=== PATIENT | female | born 1995 | race Caucasian/White ===

== ENCOUNTER 2017-06-08 21:18 | Inpatient (IN) | payer OTHER ==
[~2017-06-08] VITALS: Ht 170.2 cm; Wt 118.1 kg
[~2017-06-08 21:18] MED LIST: AMOXICILLIN500 M1 PO; MOTRIN600 MG PO; MOTRIN800 MG PO; MUCINEX D ER T1 EACH PO; PRILOSEC20 MG PO; TORADOL10 MG PO; VALIUM2 MG PO; ZOFRAN ODT4 MG PO; ZOFRAN ODT8 MG PO
[2017-06-08 21:50] VITALS: BP 171/81
[2017-06-08 21:59] VITALS: BP 150/83
[2017-06-08 22:29] VITALS: BP 137/84
[2017-06-08 22:54] LABS: EOSINOPHIL (%) 0.6 % (0-5); EOSINOPHIL COUNT 0.1 K/uL (0-0.3); HEMATOCRIT 35.2 % (36.0-46.0); IMMATURE GRANULOCYTE (%) 0.4 % (0.0-0.7); IMMATURE GRANULOCYTE COUNT 0.1 K/uL; INSTRUMENT ABS NEUTROPHIL CT 9.4 K/uL; LYMPHOCYTE COUNT 2.1 K/uL (1.0-2.8); MCH 26.1 PG (29.0-34.0); MCHC 32.7 G/DL (30.0-36.0); MCV 79.8 FL (83-99); MEAN PLAT.VOLUME 13.5 uM^3 (9.5-12.4); MONOCYTE (%) 5.4 % (3-12); MONOCYTE COUNT 0.7 K/uL (0-0.8); NEUTROPHIL (%) 76.4 % (45-76); NEUTROPHIL COUNT 9.4 K/uL (1.8-6.4); PLATELET COUNT 186 K/uL (156-360); RBC DIS.WIDTH-CV 15.6 % (11.8-14.6); RBC DIS.WIDTH-SD 45.1 % (39-53); RED BLOOD COUNT 4.41 M/uL (3.80-5.20); WHITE BLOOD COUNT 12.3 K/uL (4.1-10.2)
[2017-06-08 22:59] VITALS: BP 161/85
[2017-06-08 23:06] LABS: ANION GAP 8 MEQ/L (2-14); CHLORIDE 108 MEQ/L (99-109); POTASSIUM 4.6 MEQ/L (3.7-5.4); SAMPLE HEMOLYSIS CHECK 0; SAMPLE ICTERIC CHECK 0; SAMPLE LIPEMIA CHECK 0; SODIUM 136 MEQ/L (136-147); TOTAL BILIRUBIN 0.1 MG/DL (0.0-1.0)
[2017-06-08 23:11] LABS: ALKALINE PHOSPHATASE 140 IU/L (3-129); GFR ESTIMATE (CALCULATED) > 59 mL/min/; GLUCOSE 93 mg/dL (70-99); UREA NITROGEN (BUN) 12 mg/dL (9-23); URIC ACID 5.3 mg/dL (3.1-9.2)
[2017-06-08 23:17] VITALS: BP 152/83
[2017-06-08 23:47] VITALS: BP 143/64
[2017-06-09] VITALS (35 sets, daily range): BP systolic 119–192; BP diastolic 60–114
[2017-06-09 00:48] LABS: ADD MIUA? YES; BILIRUBIN NEGATIVE; BLOOD NEGATIVE; COLOR YELLOW ((YELLOW)); GLUCOSE (STRIP) NEGATIVE; KETONES NEGATIVE; LEUKOCYTES TRACE; NITRITE NEGATIVE; PROTEIN (STRIP) 30; SPECIFIC GRAVITY 1.021 (1.000-1.030); UROBILINOGEN 0.2 MG/DL (0.2-1.0)
[2017-06-09 01:00] LABS: BACTERIA RARE /HPF; EPITHELIAL CELLS 1+ /HPF; MUCUS TRACE /LPF; RED BLOOD CELLS 0-5 /HPF (0-5); UCUL ADDED? NO
[2017-06-09] MEDS ORDERED: MOTRIN800 MG PO (14:30)
[2017-06-10 05:48] LABS: EOSINOPHIL (%) 0.4 % (0-5); EOSINOPHIL COUNT 0.1 K/uL (0-0.3); IMMATURE GRANULOCYTE (%) 0.3 % (0.0-0.7); INSTRUMENT ABS NEUTROPHIL CT 8.6 K/uL; LYMPHOCYTE COUNT 1.9 K/uL (1.0-2.8); MCH 25.9 PG (29.0-34.0); MCHC 32.1 G/DL (30.0-36.0); MCV 80.5 FL (83-99); MEAN PLAT.VOLUME 13.4 uM^3 (9.5-12.4); MONOCYTE (%) 5.6 % (3-12); MONOCYTE COUNT 0.6 K/uL (0-0.8); NEUTROPHIL (%) 76.4 % (45-76); NEUTROPHIL COUNT 8.6 K/uL (1.8-6.4); PLATELET COUNT 165 K/uL (156-360); RBC DIS.WIDTH-CV 15.7 % (11.8-14.6); RBC DIS.WIDTH-SD 45.3 % (39-53); WHITE BLOOD COUNT 11.2 K/uL (4.1-10.2)
[2017-06-10 15:27] VITALS: BP 143/80
[2017-06-10 17:01] VITALS: BP 141/71
[2017-06-10 19:36] VITALS: BP 133/66
[2017-06-10 22:50] VITALS: BP 145/84
[2017-06-11 02:35] VITALS: BP 145/71
[2017-06-11 07:30] VITALS: BP 158/88
[2017-06-11 07:51] VITALS: BP 145/66
[2017-06-11 11:00] VITALS: BP 143/81
== END 2017-06-11 15:43 | disposition home or self-care (01) | DRG 775 ==
LOC: LDRP-OP 21:18 → 2WEST 21:20 → LDRP-OP 07-12 13:18
PROVIDERS: Midwife; Obstetrics & Gynecology
DX: O71.82 Other specified trauma to perineum and vulva (principal); R03.0 Elevated blood-pressure reading, without diagnosis of hypertension; O99.214 Obesity complicating childbirth; E66.9 Obesity, unspecified; Z68.37 Body mass index [BMI] 37.0-37.9, adult; Z3A.39 39 weeks gestation of pregnancy; Z37.0 Single live birth
CPT/HCPCS: 80053; 81003; 84550; 85025; C1755; G0378; J0595; J2405; J3010; J7120

== ENCOUNTER 2017-07-25 22:22 | Emergency (ER) | payer OTHER ==
[~2017-07-25] VITALS: Ht 170.2 cm; Wt 116.3 kg
[2017-07-25 22:23] VITALS: BP 137/78
[2017-07-26] MEDS ORDERED: VALIUM2 MG PO (00:19)
== END 2017-07-26 00:40 | disposition home or self-care (01) ==
LOC: EME 22:22
DX: S16.1XXA Strain of muscle, fascia and tendon at neck level, initial encounter (principal); X58.XXXA Exposure to other specified factors, initial encounter
CPT/HCPCS: 99281; 99284

== ENCOUNTER 2017-08-16 21:30 | Emergency (ER) | payer SELFPAY ==
[~2017-08-16] VITALS: Ht 170.2 cm; Wt 118.8 kg
[2017-08-16] MEDS ORDERED: FLONASE16 G1 BOTH NARES (22:49)
[2017-08-16 23:20] VITALS: BP 142/95
== END 2017-08-16 23:21 | disposition home or self-care (01) ==
LOC: RME 21:30 → EME 21:30 → RME 23:21
DX: J06.9 Acute upper respiratory infection, unspecified (principal); F17.200 Nicotine dependence, unspecified, uncomplicated; Z91.040 Latex allergy status
CPT/HCPCS: 87651 90; 99281; 99283

== ENCOUNTER 2018-02-09 01:29 | Emergency (ER) | payer OTHER ==
[~2018-02-09] VITALS: Ht 170.2 cm; Wt 116.2 kg
[~2018-02-09 01:29] MED LIST changes: +FLONASE16 G1 BOTH NARES
[2018-02-09] MEDS ORDERED: ULTRAM50 MG PO (02:19)
[2018-02-09 02:34] VITALS: BP 146/105
== END 2018-02-09 02:37 | disposition home or self-care (01) ==
LOC: EME 01:29
DX: M54.5 Low back pain (principal); R22.2 Localized swelling, mass and lump, trunk; F17.200 Nicotine dependence, unspecified, uncomplicated
CPT/HCPCS: 99281; 99284